=== PATIENT | female | born 1970 | race African-American/Black ===

== ENCOUNTER 2017-11-14 06:27 | Day surgery (SDC) | payer OTHER ==
[~2017-11-14 06:27] MED LIST: BUPIVACAINE 0.5% (SDV) 30 ML INJ; DEXAMETHASONE 4 MG/ML 1 ML INJ; LIDOCAINE 2% (MDV) 20 ML INJ; POLYMYXIN/BACITRACIN 1L IRRIG
[2017-11-14] MEDS ORDERED: PROPOFOL 0 ML (06:37)
[2017-11-14] MEDS ORDERED: MIDAZOLAM 1 MG/ML 2 ML INJ ×2 (06:37→16:46)
[2017-11-14] MEDS ORDERED: LIDOCAINE 2% (SDV) 5 ML INJ ×2 (06:37→07:00)
[2017-11-14] MEDS ORDERED: FENTAnyl 50 MCG/ML VIAL ×2 (06:38→16:47)
[2017-11-14] MEDS ORDERED: CEFAZOLIN 1 GM INJ ×2 (06:39→07:00)
[2017-11-14] MEDS ORDERED: ONDANSETRON 4 MG INJ (07:00)
[2017-11-14] MEDS ORDERED: PROPOFOL 200 MG INJ (07:00)
[2017-11-14] MEDS: LIDOCAINE 2% (MDV) 20 ML INJ ×2 (07:01→19:45)
[2017-11-14] MEDS: BUPIVACAINE 0.5% (SDV) 30 ML INJ ×2 (07:02→19:45)
[2017-11-14] MEDS: POLYMYXIN/BACITRACIN 1L IRRIG (07:03)
[2017-11-14] MEDS: DEXAMETHASONE 4 MG/ML 1 ML INJ (07:03)
[2017-11-14] MEDS ORDERED: GABAPENTIN 300 MG CAP PO (08:00)
[2017-11-14] MEDS ORDERED: METOCLOPRAMIDE 10 MG INJ (16:47)
[2017-11-14] MEDS ORDERED: ROPIVACAINE 0.5 % 30 ML VIAL ×2 (19:20→20:01)
== END 2017-11-14 22:05 | disposition home or self-care (01) ==
LOC: SDS 06:27
DX: M20.12 Hallux valgus (acquired), left foot (principal); M21.611 Bunion of right foot
CPT/HCPCS: 28299

== ENCOUNTER 2018-10-30 05:16 | Day surgery (SDC) | payer MEDICAID ==
[2018-10-30] MEDS ORDERED: FENTAnyl 50 MCG/ML VIAL (07:27)
[2018-10-30] MEDS ORDERED: PROPOFOL 20 ML (07:27)
[2018-10-30] MEDS ORDERED: ONDANSETRON 4 MG INJ (07:27)
[2018-10-30] MEDS ORDERED: ROPIVACAINE 0.2% 20 ML VIAL (07:27)
[2018-10-30] MEDS ORDERED: MIDAZOLAM 1 MG/ML 2 ML INJ (07:27)
[2018-10-30] MEDS ORDERED: METOCLOPRAMIDE 10 MG INJ (07:28)
[2018-10-30] MEDS ORDERED: DEXAMETHASONE 4 MG/ML 1 ML INJ (07:33)
[2018-10-30] MEDS ORDERED: PROCHLORPERAZINE 10 MG INJ IV (08:00)
[2018-10-30] MEDS ORDERED: FENTAnyl 50 MCG/ML VIAL IV (08:00)
[2018-10-30] MEDS ORDERED: CEFAZOLIN 1 GM INJ (08:01)
[2018-10-30] MEDS: LIDOCAINE 0.5% (SDV) 50 ML INJ (08:11)
[2018-10-30] MEDS: POLYMYXIN/BACITRACIN 1L IRRIG (08:11)
[2018-10-30] MEDS: BUPIVACAINE 0.5% (SDV) 30 ML INJ (08:11)
[2018-10-30] MEDS ORDERED: EPHEDrine 25 MG/5 ML SYG (08:17)
[2018-10-30] MEDS ORDERED: PHENYLephrine (100 MCG/ML) 10ML SYG (08:21)
[2018-10-30] MEDS: DEXAMETHASONE 4 MG/ML 1 ML INJ (08:46)
[2018-10-30] MEDS: ONDANSETRON 4 MG INJ IV (09:27)
[2018-10-30] MEDS: MEPERIDINE 25 MG INJ IV (09:27)
[2018-10-30] MEDS: HYDROmorphONE 1 MG/5 ML IV SYRINGE IV ×5 (09:28→09:55)
[2018-10-30] MEDS: OXYCODONE/ACETAMINOPHEN (5/325) TAB PO (10:02)
[2018-10-30] MEDS ORDERED: HYDROCODONE/APAP (10/325) TAB PO (10:30)
== END 2018-10-30 11:00 | disposition home or self-care (01) ==
LOC: SDS 05:16
DX: M13.872 Other specified arthritis, left ankle and foot (principal); E11.9 Type 2 diabetes mellitus without complications; J45.909 Unspecified asthma, uncomplicated
CPT/HCPCS: 28750; 73630-LT